=== PATIENT | male | born 1980 | race Caucasian/White ===

== ENCOUNTER 2023-02-10 10:07 | Emergency (ER) | payer OTHER, SELFPAY ==
--- NOTE | 2023-02-10 11:14 | EXP.UTC ---
Discharge Plan Disposition Patient Disposition: Home, Self-Care Condition: Good Prescriptions Prescriptions: New cephalexin 500 mg capsule 500 mg PO QID Qty: 40 0RF Referrals Follow up/Referrals: Provider,Referral, MD [Primary Care Provider] - See instructions Activity Restrictions/Add. Instructions Additional Instructions/Restrictions: Keep the wound clean and dry. Keep a dressing on it if you are going to be getting it dirty. Watch the wound for signs of infection, such as redness, swelling, drainage, fever. etc. Take tylenol or ibuprofen for pain. Follow up with your regular doctor. Return in 10 days to have the sutures removed. GO TO THE ER FOR ANY WORSENING SYMPTOMS OR CONCERNS. Clinical Impressions Clinical Impression: Laceration of finger of right hand, Need for Tdap vaccination Instructions Patient Instructions: DI for Laceration Repair -- Simple, Tetanus, Diphtheria, Pertussis (Tdap) Vaccine Discharge ED Provider: Nitin Xiong [facility] [place] General Stated complaint: [id number] lac to right pinkie finger Time Seen by Provider: 02/10/23 11:13 Related Data Previous Rx's Medication Instructions Recorded cephalexin 500 mg capsule 500 mg PO QID #40 caps 02/10/23 Allergies Allergy/AdvReac Type Severity Reaction Status Date / Time No Known Allergies Allergy Verified 02/10/23 11:43 [facility] Disclaimer: The information contained in this section may have been updated after the patient was seen, as this information can be updated by other users. Social History Smoking Status: Never smoker alcohol intake: never current occupational status: employed Travel in the last 8 weeks: None ROS Obtained: Yes All systems reviewed & no additional complaints except as documented Constitutional Constitutional: Denies chills and Denies fever(s) Eyes Eyes: Denies eye discharge ENT Ears, Nose, Mouth, and Throat: Denies dizziness, Denies otalgia and Denies sore throat Cardiovascular Cardiovascular: Denies chest pain Respiratory Respiratory: Denies shortness of breath, Denies chest congestion, Denies cough, Denies stridor and Denies wheezing Gastrointestinal Gastrointestingal: Denies nausea or vomiting Musculoskeletal Musculoskeletal: Reports system reviewed and no additional complaints, except as documented and Denies arthralgias Integumentary/Breasts Skin/Breast: Reports as per HPI Neurologic Neurologic: Denies dizziness and Denies paresthesias Allergic/Immunologic Allergic/Immunologic: Denies wheezing Physical Exam General General appearance: alert and in no apparent distress Head Head exam: atraumatic, normocephalic and normal inspection Eye Eye exam: Present normal appearance, PERRL and EOMI ENT ENT exam: Present normal exam, normal oropharynx, mucous membranes moist, TM's normal bilaterally and normal external ear exam Neck Neck exam: Present normal inspection, full ROM and trachea midline; Absent meningismus or lymphadenopathy Chest Chest inspection: Present normal inspection and symmetric chest wall rise; Absent tenderness Respiratory Respiratory exam: Present normal lung sounds bilaterally; Absent respiratory distress Cardiovascular Cardiovascular exam: Present regular rate and normal rhythm; Absent JVD Abdominal Exam Abdominal exam: Present soft and normal bowel sounds; Absent distention, tenderness or guarding Extremities Exam Extremities exam: Present normal inspection, full ROM and normal capillary refill; Absent calf tenderness Back Exam Back exam: Present normal inspection; Absent tenderness Neurological Exam Neurological exam: Present alert and oriented X3 Psychiatric Psychiatric exam: Present normal affect and normal mood Skin Skin exam: Present other (there is a stellate shaped laceration on the lateral aspect of his right fifth finger. there is no deep tissue or tendon injury. he has good 2 point touch discrimination distal to the wound. ) Lymp
[2023-02-10 11:15] VITALS: BP 168/94; PULSE 79; RESP 18; TEMP 36.6; O2SAT 98; BMI 35.3
[2023-02-10 13:06] VITALS: BP 168/94; PULSE 79; RESP 18; TEMP 36.6; O2SAT 98
--- NOTE | 2023-02-10 13:10 | PC.NURSE ---
Nitin Xiong APRN placed 5 stitches into the top part of the right pinky finger due to laceration. We placed non-adhering gauze, wrapped in coban, and then placed a finger splint in place.
== END 2023-02-10 13:06 | disposition home or self-care (01) ==
PROVIDERS: Emergency Provider Nurse Practitioner Family
DX: S61.216A Laceration without foreign body of right little finger without damage to nail, initial encounter (principal); Z23 Encounter for immunization; W26.8XXA Contact with other sharp object(s), not elsewhere classified, initial encounter
CPT/HCPCS: 12001; 90715; 96372; 99204; 99212; G0463

== ENCOUNTER 2023-02-18 09:34 | Emergency (ER) | payer OTHER, SELFPAY ==
[2023-02-18 09:50] VITALS: BP 166/92; PULSE 82; RESP 18; TEMP 36.8; O2SAT 98; BMI 35.3
[2023-02-18 10:06] VITALS: BP 166/62; PULSE 82; RESP 18; TEMP 36.8; O2SAT 98
--- NOTE | 2023-02-18 10:48 | PC.NURSE ---
Removed 5 stitches from right pinky finger. He denies having any symptoms of fever, redness, chills ect dealing with infection.
== END 2023-02-18 10:23 | disposition home or self-care (01) ==
LOC: UTC 09:37
PROVIDERS: Emergency Provider Nurse Practitioner Family
DX: Z48.02 Encounter for removal of sutures (principal)